=== PATIENT | male | born 1985 | race Hispanic/Latino ===

== ENCOUNTER 2021-06-05 06:01 | Emergency (ER) | payer SELFPAY ==
[2021-06-05] MEDS ORDERED: FENTANYL CITR 100 MCG/2 ML ONE (07:14)
[2021-06-05] MEDS ORDERED: ONDANSETRON 4 MG/2 ML VIAL ONE (07:14)
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
[2021-06-05] MEDS ORDERED: KETOROLAC 30 MG/ML INJ ONE (08:38)
--- NOTE | 2021-06-05 08:40 | RAD REPORT ---
EXAM DESCRIPTION: RAD - Tib Fib Left - 06/05/2021 7:07 am COMPARISON: None. FINDINGS: No fracture is identified. There is no dislocation or periosteal reaction noted. No acute or suspicious bony finding. No foreign body or other soft tissue abnormality. IMPRESSION: Negative left tibia & fibula examination.
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
--- NOTE | 2021-06-05 08:41 | RAD REPORT ---
EXAM DESCRIPTION: RAD - Knee Left 3 View - 06/05/2021 7:06 am CLINICAL HISTORY: PAIN COMPARISON: No comparisons FINDINGS: No fracture, dislocation or periosteal reaction.No joint effusion seen. No joint space sharyn rowing. No soft tissue abnormality. Lateral view not optimally positioned. IMPRESSION: Negative left knee. Clinical concerns for internal derangement or occult bony injury could be further assessed with MR im aging.
--- NOTE | 2021-06-05 08:41 | RAD REPORT ---
EXAM DESCRIPTION: RAD - Elbow Left 3 View - 06/05/2021 7:05 am CLINICAL HISTORY: PAIN COMPARISON: None. FINDINGS: No fracture is identified and no elevated posterior fat pad. There is no dislocation or pe riosteal reaction noted. No foreign body or other soft tissue abnormality. IMPRESSION: Negative left elbow examination.
--- NOTE | 2021-06-05 08:41 | RAD REPORT ---
EXAM DESCRIPTION: RAD - Hand Right 3 View - 06/05/2021 7:05 am CLINICAL HISTORY: PAIN COMPARISON: No comparisons FINDINGS: No fracture is identified. There is no dislocation or periosteal reaction noted. No forei gn body or significant soft tissue abnormality. IMPRESSION: Negative right hand examination.
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
[2021-06-05 09:22] VITALS: TEMP 98.8
[2021-06-05 09:23] VITALS: BP 121/82; O2SAT 100
== END 2021-06-05 09:16 | disposition home or self-care (01) ==
LOC: EDBD 06:01 → ER 06:01
DX: S00.83XA Contusion of other part of head, initial encounter (principal); S60.221A Contusion of right hand, initial encounter; S50.02XA Contusion of left elbow, initial encounter; S80.02XA Contusion of left knee, initial encounter; S80.12XA Contusion of left lower leg, initial encounter; S20.221A Contusion of right back wall of thorax, initial encounter; Y04.2XXA Assault by strike against or bumped into by another person, initial encounter; Y92.009 Unspecified place in unspecified non-institutional (private) residence as the place of occurrence of the external cause; Z72.0 Tobacco use
CPT/HCPCS: 70450; 71045; 72125; 96374; 96375; 99285; J2405; J3010